=== PATIENT | female | born 1940 | race Caucasian/White ===

== ENCOUNTER → 2016-08-10 | Outpatient (CLI) | payer MEDICARE, OTHER ==
[~2016-08-10] MED LIST: ASPIR 8181 MG PO; CEFDINIR300 MG PO; COZAAR50 MG PO; LEVAQUIN500 MG PO; LORTAB 5-325 M1 EACH PO; METOPROLOL TART25 MG PO; NEXIUM20 MG PO; NORVASC 5 MG TAB5 MG PO; PRAVACHOL40 MG PO; SOTALOL80 MG PO; TRAMADOL HCL50 MG PO; VALIUM 5 MG TAB5 MG PO; VITAMIN D2000 UNI1 PO
== END ==
DX: D33.3 Benign neoplasm of cranial nerves (principal)
CPT/HCPCS: 36415; 82565; 84520

== ENCOUNTER → 2016-08-16 | Outpatient (CLI) | payer MEDICARE, OTHER | DX: D33.3 Benign neoplasm of cranial nerves (principal); R93.0 Abnormal findings on diagnostic imaging of skull and head, not elsewhere classified | CPT/HCPCS: 70553; A9577; J7050 ==

== ENCOUNTER → 2016-10-24 | Outpatient (CLI) | payer MEDICARE, OTHER ==
[2016-10-24 11:26] LABS: HEMOGLOBIN 11.9 gm/dl (12.3-15.3); RED BLOOD COUNT 3.97 M/UL (4.00-5.10); WHITE BLOOD COUNT 8.8 K/UL (4.5-11.0)
[2016-10-24 11:42] LABS: BUN/CREATININE RATIO 30 (0-10)
== END ==
LOC: LAB 09:56
PROVIDERS: Nurse Practitioner Family
DX: D64.9 Anemia, unspecified (principal); M85.80 Other specified disorders of bone density and structure, unspecified site; E55.9 Vitamin D deficiency, unspecified
CPT/HCPCS: 36415; 80053; 82607; 82728; 82746; 83540; 83550; 83615; 84466; 85025; 85045

== ENCOUNTER → 2016-11-15 | Outpatient (CLI) | payer MEDICARE, OTHER | LOC: HEART 5 09:55 | DX: I45.5 Other specified heart block (principal); I49.5 Sick sinus syndrome; R00.1 Bradycardia, unspecified ==

== ENCOUNTER 2017-02-19 12:42 | Emergency (ER) | payer MEDICARE, OTHER | END 2017-02-19 15:44 | disposition home or self-care (01) | LOC: ER1 12:42 | DX: H61.21 Impacted cerumen, right ear (principal); Z95.0 Presence of cardiac pacemaker; Z88.5 Allergy status to narcotic agent; Z88.8 Allergy status to other drugs, medicaments and biological substances | CPT/HCPCS: 69210; 99283 ==